=== PATIENT | female | born 1950 | race Hispanic/Latino ===

== ENCOUNTER 2019-06-26 09:06 | Outpatient (CLI) | payer MEDICARE, OTHER ==
--- NOTE | 2019-06-26 10:39 | MMO ---
Bilateral MAMMO Bilat Screen [facility]. CLINICAL HISTORY: Patient is 69 years old and is seen for screening. The patient has no family history of breast cancer. The patient has a history of colon cancer in 2009. VIEWS: The views performed were: bilateral craniocaudal with tomosynthesis and bilateral mediolateral oblique with tomosynthesis. FILMS COMPARED: The present examination has been compared to prior imaging studies performed at [facility] on 10/08/2014, 10/10/2015, 10/15/2016 and 10/16/2017. MAMMOGRAM FINDINGS: There are scattered fibroglandular densities. There are stable benign appearing calcifications seen in the right breast. There are no suspicious masses, suspicious calcifications, or new areas of architectural distortion. IMPRESSION: THERE IS NO MAMMOGRAPHIC EVIDENCE OF MALIGNANCY. A ROUTINE FOLLOW-UP MAMMOGRAM IN 1 YEAR IS RECOMMENDED. THE RESULTS OF THIS EXAM WERE SENT TO THE PATIENT. ACR BI-RADS Category 2 - Benign finding MAMMOGRAPHY NOTE: 1. A negative mammogram report should not delay a biopsy if a dominant of clinically suspicious mass is present. 2. Approximately 10% to 15% of breast cancers are not detected by mammography. 3. Adenosis and dense breasts may obscure an underlying neoplasm. Reported by: LINDA SANTO MD Electonically Signed: [id number]
== END 2019-06-26 09:07 | disposition home or self-care (01) ==
LOC: BICMAMMO 09:06
PROVIDERS: ATTEND Family Medicine
DX: Z12.31 Encounter for screening mammogram for malignant neoplasm of breast (principal); Z85.038 Personal history of other malignant neoplasm of large intestine
CPT/HCPCS: 77063; 77067

== ENCOUNTER 2020-08-10 07:36 | Outpatient (CLI) | payer MEDICARE, OTHER ==
[2020-08-10 14:18] LABS: #Eosinphils 0.2 thou/uL (0.0-0.7); #Lymphocytes 2.1 thou/uL (1.20-3.40); #Monocytes 0.5 thou/uL (0.11-0.59); #Neutrophils 4.9 thou/uL (1.40-6.50); %Basophils 0.4 % (0.0-1.0); %Eosinophils 2.3 % (0.0-10.0); %Lymphocytes 27.5 % (21.0-51.0); %Monocytes 6.2 % (0.0-10.0); %Neutrophils 63.6 % (42.0-75.0); Hemoglobin 12.7 g/dL (12.0-16.0); Mean Corpuscular HGB CONC 34.3 g/dL (32.0-36.0); Mean Corpuscular Hemoglobin 32.9 pg (27.0-31.0); Mean Platelet Volume 7.1 fL (7.4-10.4); Platelet Count 223 thou/uL (130-400); RBC Distribution Width 11.9 % (11.5-14.5); Red Blood Cell (RBC) Count 3.85 mill/uL (4.20-5.40); White Blood Cell (WBC) Count 7.8 thou/uL (4.8-10.8)
[2020-08-10 14:24] LABS: INR-International Normal Ratio 0.9; Prothrombin Time 12.2 sec (12.0-14.7)
[2020-08-10 14:42] LABS: Bacteria/HPF None Seen HPF (None Seen); Bilirubin Negative (Negative); Blood, Urine Negative (Negative); Clarity Clear (Clear); Glucose, Urine (Dipstick) 70 mg/dL (Negative); Ketone, Urine Negative (Negative); Leukocyte Negative Leu/uL (Negative); Nitrite Negative (Negative); Protein, Urine (Dipstick) Negative (Neg-Trace); RBC/HPF 0-3 HPF (0-3); Specific Gravity, Urine 1.008 (1.002-1.036); Squamous Epithelial 0-3 HPF (0-3); Urobilinogen Normal mg/dL (Less than 2); WBC/HPF 0-3 HPF (0-3); pH, Urine 5.5 (5.0-9.0)
[2020-08-10 16:17] LABS: Anion Gap 18 mmol/L (10-20); BUN (Urea Nitrogen) 19 mg/dL (9.8-20.1); Calc. Creatinine Clearance 0 mL/min (70-130); Calcium 9.1 mg/dL (7.8-10.44); Carbon Dioxide 20 mmol/L (23-31); Chloride 106 mmol/L (98-107); Estimated GFR-MDRD 68; Glucose 165 mg/dL (80-115); Potassium 4.7 mmol/L (3.5-5.1); Sodium 139 mmol/L (136-145)
[2020-08-11 12:04] LABS: SARS-CoV-2 MS2 Positive; SARS-CoV-2 N Gene Negative; SARS-CoV-2 S Gene Negative; SARS-CoV-2 by NAA Not Detected (NotDetected); SARS-CoV-2 orf1ab Negative
== END 2020-08-10 07:37 | disposition home or self-care (01) ==
LOC: LABBT 07:36
PROVIDERS: ATTEND Orthopaedic Surgery
DX: Z01.812 Encounter for preprocedural laboratory examination (principal); M17.11 Unilateral primary osteoarthritis, right knee; Z20.828 Contact with and (suspected) exposure to other viral communicable diseases
CPT/HCPCS: 80048; 81001; 85025; 85610; 87086; U0003; 87635

== ENCOUNTER 2022-07-09 08:50 | Outpatient (CLI) | payer MEDICARE, OTHER | END 2022-07-09 08:51 | disposition home or self-care (01) | LOC: BICMAMMO 08:50 | PROVIDERS: ATTEND Family Medicine | DX: Z12.31 Encounter for screening mammogram for malignant neoplasm of breast (principal); Z85.038 Personal history of other malignant neoplasm of large intestine | CPT/HCPCS: 77063; 77067 ==

== ENCOUNTER 2023-07-24 14:06 | Outpatient (CLI) | payer MEDICARE, OTHER | END 2023-07-24 14:07 | disposition home or self-care (01) | LOC: BICMAMMO 14:06 | PROVIDERS: ATTEND Family Medicine | DX: Z12.31 Encounter for screening mammogram for malignant neoplasm of breast (principal); Z85.038 Personal history of other malignant neoplasm of large intestine | CPT/HCPCS: 77063; 77067 ==

== ENCOUNTER 2023-09-12 13:18 | Outpatient (CLI) | payer MEDICARE, OTHER ==
[2023-09-12 14:49] LABS: #Basophils 0.1 10x3/uL (0.0-0.2); #Eosinphils 0.2 10x3/uL (0.0-0.5); #Monocytes 0.8 10x3/uL (0.0-1.1); #Neutrophils 4.6 10x3/uL (1.5-8.4); %Eosinophils 2.1 % (0.0-6.0); %Lymphocytes 37.2 % (18.0-47.0); %Monocytes 8.7 % (0.0-10.0); %Neutrophils 50.2 % (40.0-75.0); Hematocrit 37.5 % (34.9-44.5); Hemoglobin 12.7 g/dL (12.0-15.5); Mean Corpuscular HGB CONC 33.9 g/dL (32.0-36.0); Mean Corpuscular Hemoglobin 30.8 pg (27.0-33.0); Mean Platelet Volume 9.2 fl (7.4-10.4); Platelet Count 268 10x3/uL (150-450); RBC Distribution Width 12.8 % (11.5-14.5); Red Blood Cell (RBC) Count 4.12 10x6/uL (3.90-5.03); White Blood Cell (WBC) Count 9.2 10x3/uL (3.5-10.5)
[2023-09-12 14:58] LABS: Prothrombin Time 10.6 sec (9.5-12.1)
[2023-09-12 14:59] LABS: Anion Gap 15 mmol/L (10-20); BUN (Urea Nitrogen) 31 mg/dL (9.8-20.1); Calc. Creatinine Clearance 0 mL/min (70-130); Calcium 9.4 mg/dL (7.8-10.44); Carbon Dioxide 23 mmol/L (23-31); Chloride 105 mmol/L (98-107); Estimated GFR 41; Glucose 117 mg/dL (83-110); Potassium 4.3 mmol/L (3.5-5.1); Sodium 139 mmol/L (136-145)
== END 2023-09-12 13:19 | disposition home or self-care (01) ==
LOC: LABBT 13:18
PROVIDERS: ATTEND Orthopaedic Surgery
DX: Z01.818 Encounter for other preprocedural examination (principal); M17.12 Unilateral primary osteoarthritis, left knee
CPT/HCPCS: 80048; 85025; 85610; 87081; 93005; 93010

== ENCOUNTER 2023-09-17 06:41 | Observation (INO) | payer MEDICARE, OTHER ==
[2023-09-12 14:30] VITALS: BMI 33.5
[2023-09-17] MEDS ORDERED: Sodium Chloride 0.9% 100 ML ONE ×3 (07:44→16:26)
[2023-09-17] MEDS ORDERED: Vancomycin (BATCH) 1.5 GM/300 ML BAG ONE (07:44)
[2023-09-17] MEDS ORDERED: Tranexamic Acid 1,000 MG/10 ML VIAL ONE (07:44)
[2023-09-17] MEDS ORDERED: Bupivacaine PF 0.5% 30 ML VIAL ONE ×2 (08:26→09:03)
[2023-09-17] MEDS ORDERED: Midazolam HCl 2 mg/2 ml Vial ONE (08:26)
[2023-09-17] MEDS ORDERED: fentaNYL 50 mcg/mL 1 mL Vial ONE ×5 (08:29→11:52)
[2023-09-17] MEDS ORDERED: EPINEPHrine 1 MG/ML AMP ONE (09:03)
[2023-09-17] MEDS ORDERED: fentaNYL 50 mcg/mL 1 mL Vial SLOW IVP PRN ×2 (09:07→09:51)
[2023-09-17] MEDS ORDERED: Zolpidem Tartrate 5 MG TAB PO PRN ×2 (09:07→10:00)
[2023-09-17] MEDS ORDERED: Ondansetron PF 4 MG/2 ML Vial IVP PRN ×2 (09:07→10:00)
[2023-09-17] MEDS ORDERED: HYDROcodone/Acetaminophen 10/325 mg Tablet PO PRN ×2 (09:07)
[2023-09-17] MEDS ORDERED: Acetaminophen 325 MG TAB PO PRN (09:07)
[2023-09-17] MEDS ORDERED: diphenhydrAMINE 25 MG CAP PO PRN (09:07)
[2023-09-17] MEDS ORDERED: Promethazine HCl 25 MG/ML VIAL IM PRN ×3 (09:07→10:50)
[2023-09-17] MEDS ORDERED: CEFAZOLIN 2 GM VIAL ONE ×2 (09:11→16:25)
[2023-09-17] MEDS ORDERED: Ketorolac Tromethamine 30 MG/ML VIAL IVP PRN (10:00)
[2023-09-17] MEDS ORDERED: traMADol HCl 50 MG TAB PO PRN ×2 (10:00)
[2023-09-17] MEDS ORDERED: Ropivacaine 0.2% 550 ML 550 ML NERVE BLCK SCH (10:00)
[2023-09-17] MEDS ORDERED: Ondansetron HCl/PF 4 MG/2 ML Vial IVP PRN (10:50)
[2023-09-17] MEDS: CEFAZOLIN 2 GM in Sodium Chloride 0.9% 100 ML IVPB SCH (16:30)
[2023-09-17] MEDS: Sodium Chloride 0.9% 1,000 ML IV SCH ×2 (17:40→20:09)
[2023-09-17] MEDS ORDERED: FLU VACC QS2023(65UP)/MF59C/PF 60 MCG/0.5 ML SYRINGE IM ONE (18:15)
[2023-09-17] MEDS: HYDROcodone/Acetaminophen 10/325 mg Tablet PO PRN (19:37)
[2023-09-17] MEDS ORDERED: Vancomycin (BATCH) 1.5 GM in Premix 1 BAG IVPB SCH (20:00)
[2023-09-17] MEDS: Lisinopril 20 MG TAB PO SCH (20:08)
[2023-09-17] MEDS: Aspirin 81 mg Enteric Coated Tablet PO SCH (20:09)
[2023-09-17] MEDS ORDERED: Alogliptin 6.25 MG TAB PO SCH (21:00)
[2023-09-17] MEDS ORDERED: Rosuvastatin 10 MG TAB PO SCH (21:00)
[2023-09-18] MEDS: CEFAZOLIN 2 GM in Sodium Chloride 0.9% 100 ML IVPB SCH (01:20)
[2023-09-18] MEDS: HYDROcodone/Acetaminophen 10/325 mg Tablet PO PRN ×3 (02:07→12:30)
[2023-09-18 05:07] LABS: Hematocrit 32.4 % (36.0-47.0); Hemoglobin 11.2 g/dL (12.0-16.0); Mean Corpuscular HGB CONC 34.6 g/dL (32.0-36.0); Mean Corpuscular Hemoglobin 31.9 pg (27.0-31.0); Mean Corpuscular Volume 92.3 fl (78.0-98.0); Mean Platelet Volume 9.3 fL (7.4-10.4); Platelet Count 176 10x3/uL (130-400); RBC Distribution Width 13.1 % (11.5-14.5); Red Blood Cell (RBC) Count 3.51 mill/uL (4.20-5.40); White Blood Cell (WBC) Count 11.3 10x3/uL (4.8-10.8)
[2023-09-18] MEDS: Sodium Chloride 0.9% 1,000 ML IV SCH (07:42)
[2023-09-18] MEDS ORDERED: Ferrous Gluconate 324 MG TAB PO SCH (08:00)
[2023-09-18] MEDS ORDERED: glyBURIDE 5 MG TAB PO SCH (09:00)
[2023-09-18] MEDS ORDERED: Multivitamin W/ Minerals 1 TAB PO SCH (09:00)
[2023-09-18] MEDS ORDERED: Hydrochlorothiazide 25 MG TAB PO SCH (09:00)
[2023-09-18] MEDS ORDERED: Senokot S 8.6-50 MG TAB PO SCH (09:00)
[2023-09-18] MEDS: Lisinopril 20 MG TAB PO SCH (09:15)
[2023-09-18] MEDS ORDERED: metFORMIN 500 MG TAB PO SCH (09:15)
[2023-09-18] MEDS: Aspirin 81 mg Enteric Coated Tablet PO SCH (09:15)
[2023-09-18 12:16] VITALS: BP 133/77; TEMP 98.6
[2023-09-19] MEDS ORDERED: metFORMIN 500 MG TAB PO SCH (08:00)
== END 2023-09-18 13:05 | disposition home or self-care (01) ==
LOC: SDC 06:41 → SJJU 17:45
PROVIDERS: ADMIT Orthopaedic Surgery; ATTEND Orthopaedic Surgery
PROC: 0SRD0JZ Replacement of Left Knee Joint with Synthetic Substitute, Open Approach (ICD-10-PCS; principal; 2023-09-17)
DX: M17.12 Unilateral primary osteoarthritis, left knee (principal); E11.9 Type 2 diabetes mellitus without complications; I10 Essential (primary) hypertension; Z90.710 Acquired absence of both cervix and uterus; Z88.1 Allergy status to other antibiotic agents; Z79.84 Long term (current) use of oral hypoglycemic drugs; Z79.899 Other long term (current) drug therapy
CPT/HCPCS: 27447; 73560; 82962; 85027; 97110 ×2; 97116 ×2; 97530; A4306; C1776; J3010; J3370; 36415; 36416; J0171; J1885; J2250; J2795; J3490; S0020

== ENCOUNTER 2024-10-13 10:33 | Outpatient (CLI) | payer MEDICARE, OTHER | END 2024-10-13 10:34 | disposition home or self-care (01) | LOC: BICMAMMO 10:33 | PROVIDERS: ATTEND Family Medicine | DX: Z12.31 Encounter for screening mammogram for malignant neoplasm of breast (principal) | CPT/HCPCS: 77063; 77067 ==

== ENCOUNTER 2025-11-15 09:20 | Outpatient (CLI) | payer MEDICARE, OTHER | END 2025-11-15 09:21 | disposition home or self-care (01) | LOC: BICMAMMO 09:20 | PROVIDERS: ATTEND Family Medicine | DX: Z12.31 Encounter for screening mammogram for malignant neoplasm of breast (principal); Z85.038 Personal history of other malignant neoplasm of large intestine | CPT/HCPCS: 77063; 77067 ==